=== PATIENT | female | born 1985 | race African-American/Black ===

== ENCOUNTER 2017-10-21 19:45 | Inpatient (IN) | payer OTHER ==
[2017-10-21] MEDS ORDERED: Ondansetron HCl/PF 4 MG/2 ML Vial IVP PRN (19:50)
[2017-10-21] MEDS ORDERED: Promethazine HCl 25 MG/ML VIAL IM PRN (19:50)
[2017-10-21 19:58] VITALS: BMI 34.9
[2017-10-21] MEDS ORDERED: Penicillin G Potassium 5 MILL.UNITS in Sodium Chloride 0.9% 100 ML IVPB SCH (20:15)
[2017-10-21 21:15] LABS: Hemoglobin 10.2 g/dL (12.0-16.0); Mean Corpuscular Hemoglobin 26.6 pg (27.0-31.0); Mean Corpuscular Volume 78.4 fL (78.0-98.0); Mean Platelet Volume 8.4 fL (7.4-10.4); Platelet Count 167 thou/uL (130-400); RBC Distribution Width 13.4 % (11.5-14.5); Red Blood Cell (RBC) Count 3.82 mill/uL (4.20-5.40); White Blood Cell (WBC) Count 4.4 thou/uL (4.8-10.8)
[2017-10-21] MEDS: Betamet Acet/Betamet Na Ph 30 MG/5 ML VIAL IM SCH (21:22)
[2017-10-21 21:31] LABS: Amphetamine Not Detected (NotDetected); Barbiturates Screen Not Detected (NotDetected); Benzodiazepine Screen Not Detected (NotDetected); Cocaine Metabolite Screen Not Detected (NotDetected); Medtox Control Line Valid? VALID (VALID); Medtox Reader # READER 1; Methadone Not Detected (NotDetected); Methamphetamine Not Detected (NotDetected); Opiate Screen Not Detected (NotDetected); Oxycodone Screen Not Detected (NotDetected); Phencyclidine (PCP) Not Detected (NotDetected); THC/Cannabinoid Screen Not Detected (NotDetected); Tricyclic Screen Not Detected (NotDetected)
--- NOTE | 2017-10-21 21:33 | PDOC.LDHP ---
Labor and Delivery H&P Chief complaint: other (medically indicated IOL for IUGR and oliogohydramnios) HPI: Patient has been seen at [facility] for limited care durin gthis . she was last seen on wednesday10/19/17, at which time she has an ultrasound where showed IUGR of <1%. she was referred to the [facility] and had her appointment today. At 1500 approximately I recieved at a call from Dr. Pugh - the [facility] with [facility]. He informed me that the patient had IUGR and oligohydramnios, and to admit her for steriod benefits for 48 hours and proceed with IOL. the patient was notified of the POC and instructed to arrive at [facility]. Current gestational age (weeks): 34 Dating criteria: second trimester ultrasound Grav: 8 Para: 5 OB History Details: 2004 P1 2006 P2 2007 P3 2009 P4 2016 P5 with pree - not induced. Current complications: IUGR, oligohydramnios Abnormal US findings: Yes (oligo and IUGR) Past Medical History: Anemia Current medications: pre- vitamins, iron Allergies/Adverse Reactions: Allergies Allergy/AdvReac Type Severity Reaction Status Date / Time No Known Drug Allergies Allergy Verified 10/21/17 20:04 Social history: tobacco use (3/day) - Physical Exam General: NAD Lungs: nonlabored breathing Abdomen: gravid FHT: category 1 - OB Labs Blood type: O RH: positive Antibody Screen: negative HIV: negative RPR: negative HEPSAg: negative GBS: unknown Urine drug screen: negative Rubella: non-immune Additional Labs: hg electrophoresis NML Neg Pap GCCt neg TORCH labs Neg with the exception of IGG for herpes and CMV Quad negative. Carrier testing for CF, SS, SMA fragileX neg. - Assessment L&D Assessment: medically indicated induction - Plan Plan: admit to L&D (I consulted with Dr. Roberson regarding patient and agreed on POC) -: A: at 34w 4 days with IUGR and oligohydramnios P: Admit to L&D for steroid for lung development Pree labs ordered as baseline due to history of Pree with last After extended monitoring upon arrival, can change to Q shift 20 minute heart rate monitoring induction of labor after steroid benefit NICU consult ordered ? mag for neuroprotection if patient labor.
[2017-10-21 21:37] LABS: ALT (SGPT) Less than 7 U/L (8-55); AST (SGOT) 7 U/L (5-34); Albumin 3.1 g/dL (3.5-5.0); Alkaline Phosphatase 99 U/L (40-150); Anion Gap 10 mmol/L (10-20); BUN (Urea Nitrogen) 6 mg/dL (7.0-18.7); Bilirubin, Total Less than 0.2 mg/dL (0.2-1.2); Calc. Creatinine Clearance 151 mL/min (70-130); Calcium 8.7 mg/dL (7.8-10.44); Carbon Dioxide 24 mmol/L (22-29); Chloride 108 mmol/L (98-107); Estimated GFR-MDRD Greater than 90; Globulin 2.7 g/dL (2.4-3.5); Glucose 104 mg/dL (70-105); Potassium 3.6 mmol/L (3.5-5.1); Protein, Total 5.8 g/dL (6.0-8.3); Sodium 138 mmol/L (136-145)
[2017-10-21 21:55] LABS: Syphilis Antibody Nonreactive (Nonreactive); Syphilis Antibody Index 0.04 S/CO (<1.00 Non-Reactive)
[2017-10-22 00:19] LABS: Creatinine, Urine 132.91 mg/dL (47-110); Protein, Urine Random Quant Less than 10 mg/dL (1-14)
[2017-10-22 02:00] LABS: HBSAg Index 0.21 S/CO (0-0.99); Hep B Surf Ag Non-Reactive S/CO (NonReactive)
[2017-10-22 09:54] LABS: Amnisure Internal Control QC ACCEPTABLE (ACCEPTABLE)
[2017-10-22 10:01] LABS: Amnisure Test No Membranes Rupture (No Rupture)
[2017-10-22] MEDS: Betamet Acet/Betamet Na Ph 30 MG/5 ML VIAL IM SCH ×2 (21:35→21:38)
[2017-10-22] MEDS ORDERED: Labetalol HCl 100 MG/20 ML VIAL SLOW IVP PRN (22:43)
[2017-10-22] MEDS ORDERED: Penicillin G Potassium 5 MILL.UNITS in Sodium Chloride 0.9% 100 ML IVPB SCH (23:00)
[2017-10-22 23:26] LABS: #Lymphocytes 1.1 thou/uL (1.20-3.40); #Monocytes 0.4 thou/uL (0.11-0.59); %Basophils 0.3 % (0.0-1.0); %Eosinophils 0.2 % (0.0-10.0); %Lymphocytes 17.1 % (21.0-51.0); %Monocytes 5.7 % (0.0-10.0); %Neutrophils 76.8 % (42.0-75.0); Hemoglobin 10.5 g/dL (12.0-16.0); Mean Corpuscular HGB CONC 32.7 g/dL (32.0-36.0); Mean Corpuscular Hemoglobin 26.3 pg (27.0-31.0); Mean Corpuscular Volume 80.2 fL (78.0-98.0); Mean Platelet Volume 8.8 fL (7.4-10.4); Platelet Count 166 thou/uL (130-400); RBC Distribution Width 13.6 % (11.5-14.5); White Blood Cell (WBC) Count 6.5 thou/uL (4.8-10.8)
[2017-10-22 23:50] LABS: ALT (SGPT) Less than 7 U/L (8-55); AST (SGOT) 6 U/L (5-34); Albumin 3.2 g/dL (3.5-5.0); Alkaline Phosphatase 96 U/L (40-150); Anion Gap 12 mmol/L (10-20); BUN (Urea Nitrogen) 6 mg/dL (7.0-18.7); Bilirubin, Total Less than 0.2 mg/dL (0.2-1.2); Calc. Creatinine Clearance 145 mL/min (70-130); Calcium 8.8 mg/dL (7.8-10.44); Carbon Dioxide 23 mmol/L (22-29); Chloride 107 mmol/L (98-107); Estimated GFR-MDRD Greater than 90; Globulin 3.1 g/dL (2.4-3.5); Glucose 144 mg/dL (70-105); Potassium 3.8 mmol/L (3.5-5.1); Protein, Total 6.3 g/dL (6.0-8.3); Sodium 138 mmol/L (136-145)
--- NOTE | 2017-10-23 17:39 | PDOC.APC ---
Antepartum Consult DANIELLE GARIBAY is a 32 year old female at [34 5/7] gestational weeks. I was asked by Yisel Hogan CNM to speak with the patient regarding anticipated course for a baby born at 34-35 weeks. Mother had limited care with [facility] with first appointment at 18 5/7 weeks. Her dating is based on that ultrasound. She was sent for another ultrasound on 10/19 for size>dates, found to have IUGR. She was seen by [facility] in [place] on 10/21, reported IUGR ( report shows normal SILVANA but patient was verbally told low fluid) and recommended steroid administration and induction of labor. Mother had no specific questions regarding premature delivery outside of how long the baby would be hospitalized. I spoke with the patient and father of the baby. I outlined that the timing and mode of delivery is a decision that will be made by Yisel Hogan or the OB provider. Once the patient is taken for delivery, the resuscitation team will be present and we discussed the composition of the neonatology team. The initial focus will be on respiratory stabilization and may include minimal assistance, CPAP or intubation with surfactant administration. I discussed that the patient will need to be admitted to the NICU in an isolette due to temperature instability associated with prematurity. We may then obtain IV access, likely peripheral, if the patient needs respiratory support or has low blood sugar as babies are at risk for hypoglycemia. We discussed that babies born are at higher risk for feeding intolerance, infection and jaundice. I discussed that breastmilk is the best nutrition for babies and she is strongly encouraged to pump after delivery. Mother does plan to breastfeed. I explained that the duration of hospital stay will be determined on the clinical course of the baby. I outlined the milestones that needed to be achieved to ensure safe discharge home. I also made them aware that their baby will need to reach a minimum of 4 pounds prior to discharge to be able to safely go home in a carseat. They had the opportunity to ask questions. Mother asked about why she had low fluid levels, why the baby had not grown and under what circumstances she would need a . I let her know there are many reasons for babies to be born small (poor placental flow, infection, genetic, etc) and the reason for her baby's growth restriction would depend on her clinical history. I let her know that I would let the L&D staff know her concerns and questions so that they could be addressed by her care provider. I encouraged them to contact our service again if additional questions arise. I spent 30 minutes in consultation and coordination of care. Labs: Ante Labs Blood Type O POSITIVE 10/21/17 20:55 Hep Bs Antigen Non-Reactive S/CO (NonReactive) 10/21/17 20:55 Syphilis ab negative HIV negative (5/) GBS unknown Rubella immune (5/18) TORCH titers negative per maternal H&P except CMV and HSV IgG
[2017-10-23] MEDS ORDERED: Penicillin G Potassium 5 MILL.UNITS in Sodium Chloride 0.9% 100 ML IVPB SCH (21:00)
[2017-10-23] MEDS: Lactated Ringer's 1,000 ML IV SCH (22:00)
--- NOTE | 2017-10-23 22:23 | PDOC.LDPN ---
Labor & Delivery Progress Note - Subjective Subjective: comfortable - Objective Abnormal vital signs: Occasional mild range blood pressures - resolving spontaneously Uterine fundus: non tender Dilation: 1 Effacement: 25% Station: -3 FHT: category 1 Vader contractions every: none Procedures: cook balloon placed for cervical ripening - Assessment (1) IUGR (intrauterine growth restriction) Current Visit: Yes Status: Acute (2) Oligohydramnios Code(s): O41.00X0 - OLIGOHYDRAMNIOS, UNSP TRIMESTER, NOT APPLICABLE OR UNSP Current Visit: Yes Status: Acute (3) Grand multipara in labor in third trimester Code(s): O09.43 - SUPRVSN OF W GRAND MULTIPARITY, THIRD TRIMESTER Current Visit: Yes Status: Acute Plan: other (cervical ripening for 12 hours using a cook's balloon) -: Antibiotic for GBS prophylaxis.
[2017-10-23] MEDS ORDERED: Lidocaine 1% (PF) 30 ML VIAL SC PRN (22:35)
[2017-10-23] MEDS ORDERED: Methylergonovine 0.2 MG/ML VIAL IM PRN (22:35)
[2017-10-23] MEDS ORDERED: HYDROcodone/Acetaminophen 5/325 mg Tablet PO PRN ×2 (22:35)
[2017-10-23] MEDS ORDERED: Misoprostol 200 MCG TAB PR PRN (22:35)
[2017-10-23] MEDS ORDERED: Ibuprofen 800 MG TAB PO PRN (22:35)
[2017-10-24] MEDS: Penicillin G 2.5 MILL.units 2.5 MILL.UNITS in Premix Bag 1 BAG IVPB SCH ×6 (02:00→22:00)
[2017-10-24] MEDS: Lactated Ringer's 1,000 ML IV SCH ×2 (07:07→15:55)
[2017-10-24] MEDS ORDERED: NS w/ Oxytocin 10 units 500 ML ONE (09:09)
[2017-10-24] MEDS ORDERED: NS w/ Oxytocin 10 units 500 ML IV SCH (09:30)
--- NOTE | 2017-10-24 13:28 | PDOC.LDPN ---
Labor & Delivery Progress Note - Subjective Subjective: comfortable, other (resting, not in pain) - Objective Vital signs reviewed and normal: yes Uterine fundus: non tender Dilation: 3 Effacement: 50% Station: -3 FHT: category 1 Alden contractions every: unable to visulize with external toco. AROM: clear fluid IUPC placed: yes - Assessment (1) IUGR (intrauterine growth restriction) Current Visit: Yes Status: Acute (2) Oligohydramnios Code(s): O41.00X0 - OLIGOHYDRAMNIOS, UNSP TRIMESTER, NOT APPLICABLE OR UNSP Current Visit: Yes Status: Acute (3) Grand multipara in labor in third trimester Code(s): O09.43 - SUPRVSN OF W GRAND MULTIPARITY, THIRD TRIMESTER Current Visit: Yes Status: Acute Plan: pitocin for augmentation -: Anticipate with Neonatology in room. continue pitocin for augmentation. epidural when desired by patient.
[2017-10-24] MEDS ORDERED: DISCONTINUE ALL PREVIOUS NARCOTICS FS SCH (14:15)
[2017-10-24] MEDS ORDERED: Bupivacaine 0.25% HCL 30 ML VIAL ONE (15:28)
[2017-10-24] MEDS: Bupivacaine 0.5% 20 ML, fentaNYL Citrate/PF 400 MCG in Sodium Chloride 0.9% 72 ML EPIDURAL SCH (15:31)
[2017-10-24] MEDS ORDERED: Naloxone HCl 0.4 mg/ml Vial IVP PRN ×2 (15:49)
[2017-10-24] MEDS ORDERED: Ondansetron HCl/PF 4 MG/2 ML Vial IVP PRN (15:49)
[2017-10-24] MEDS ORDERED: ePHEDrine/0.9% NaCl/PF SYRINGE 50 mg/10 ml SLOW IVP PRN (15:49)
[2017-10-24] MEDS ORDERED: diphenhydrAMINE 50 MG/ML VIAL IVP PRN (15:49)
[2017-10-24] MEDS ORDERED: Lactated Ringer's 500 ML IV PRN (15:49)
[2017-10-24] MEDS ORDERED: Acetaminophen 325 MG TAB PO PRN (15:49)
[2017-10-24] MEDS ORDERED: Eucerin (Mineral Oil/Petrolatum,White) 30 gm Jar TOP PRN (15:49)
[2017-10-24] MEDS ORDERED: Promethazine HCl 25 MG/ML VIAL IM PRN (15:49)
[2017-10-24] MEDS ORDERED: fentaNYL Citrate/PF 400 MCG, Bupivacaine 0.5% 20 ML in Sodium Chloride 0.9% 72 ML EPIDURAL SCH (16:00)
[2017-10-24] MEDS ORDERED: Communication Order-Pharmacy FS SCH (16:00)
[2017-10-25] MEDS: Bupivacaine 0.5% 20 ML, fentaNYL Citrate/PF 400 MCG in Sodium Chloride 0.9% 72 ML EPIDURAL SCH (00:15)
[2017-10-25] MEDS: Penicillin G 2.5 MILL.units 2.5 MILL.UNITS in Premix Bag 1 BAG IVPB SCH ×3 (02:30→14:15)
[2017-10-25] MEDS ORDERED: Misoprostol 200 MCG TAB ONE (02:44)
[2017-10-25] MEDS: NS / Oxytocin 40 units/1000ml 1,000 ML IV PRN ×2 (03:20→04:27)
--- NOTE | 2017-10-25 03:36 | PDOC.OPDEL ---
OB Operative/Delivery Note Delivery Dr/Surgeon: light Pre-Delivery Diagnosis: active labor, medically indicated induction, ruptured membrane Procedure/Post Delivery Dx: spontaneous vaginal delivery Weeks gestation: 35 Anesthesia: epidural - Findings A Sex: male Weight: 4 lb 4 oz - 1 min: 8 - 5 min: 9 - Additional Findings/Plan Placenta delivered: spontaneous Repaired Obstetrical Laceration: none Estimated blood loss: 100 EBL see nurses notes for QBL Compilations/Other Findings: Placenta to pathology Post delivery plan: routine recovery
[2017-10-25] MEDS ORDERED: Labetalol HCl 100 MG/20 ML VIAL SLOW IVP PRN ×2 (03:43→09:20)
[2017-10-25] MEDS ORDERED: NIFEdipine 10 MG CAP PO SCH (09:00)
[2017-10-25] MEDS ORDERED: Benzocaine/Menthol 20-0.5% 60 ML CAN TOP PRN (09:20)
[2017-10-25] MEDS ORDERED: Milk Of Magnesia 30 ML UDCUP PO PRN (09:20)
[2017-10-25] MEDS ORDERED: Bisacodyl 10 MG SUPP PR PRN (09:20)
[2017-10-25] MEDS ORDERED: HYDROcodone/Acetaminophen 5/325 mg Tablet PO PRN (09:20)
[2017-10-25] MEDS ORDERED: NS / Oxytocin 40 units/1000ml 1,000 ML IV SCH (09:20)
[2017-10-25] MEDS ORDERED: Misoprostol 200 MCG TAB VAG PRN (09:20)
[2017-10-25] MEDS ORDERED: Ondansetron HCl/PF 4 MG/2 ML Vial IVP PRN (09:20)
[2017-10-25] MEDS ORDERED: Methylergonovine 0.2 MG/ML VIAL IM PRN (09:20)
[2017-10-25] MEDS ORDERED: Adacel (T-DAP) 0.5 ML VIAL IM ONE (12:00)
[2017-10-25] MEDS: Docusate Calcium (SURFAK) 240 MG CAP PO SCH ×2 (14:14→21:04)
[2017-10-25] MEDS: Ferrous Sulfate 325 MG TAB PO SCH (17:07)
[2017-10-25] MEDS: HYDROcodone/Acetaminophen 5/325 mg Tablet PO PRN (21:40)
[2017-10-26 05:31] LABS: Hemoglobin 9.6 g/dL (12.0-16.0); Mean Corpuscular HGB CONC 32.1 g/dL (32.0-36.0); Mean Platelet Volume 9.1 fL (7.4-10.4); Platelet Count 171 thou/uL (130-400); RBC Distribution Width 13.6 % (11.5-14.5); Red Blood Cell (RBC) Count 3.68 mill/uL (4.20-5.40)
[2017-10-26] MEDS: Docusate Calcium (SURFAK) 240 MG CAP PO SCH ×2 (09:31→23:28)
[2017-10-26] MEDS: Ferrous Sulfate 325 MG TAB PO SCH ×2 (09:31→18:01)
[2017-10-26] MEDS ORDERED: Labetalol HCl 100 MG/20 ML VIAL SLOW IVP PRN (12:27)
[2017-10-26] MEDS ORDERED: NIFEdipine XL 30 MG TAB PO SCH (13:00)
[2017-10-26] MEDS: NIFEdipine XL 30 MG TAB PO SCH (14:18)
[2017-10-26] MEDS: HYDROcodone/Acetaminophen 5/325 mg Tablet PO PRN (23:28)
[2017-10-27] MEDS: Ferrous Sulfate 325 MG TAB PO SCH (08:11)
[2017-10-27] MEDS: Docusate Calcium (SURFAK) 240 MG CAP PO SCH (08:11)
[2017-10-27] MEDS: NIFEdipine XL 30 MG TAB PO SCH (10:05)
[2017-10-27 13:23] VITALS: TEMP 98.1
[2017-10-27 14:46] VITALS: BP 143/82
--- NOTE | 2017-10-27 14:48 | PDOC.PP ---
Post Progress Note Post Day #: 1 Subjective: pt is doing well. seeing in NICU. patinet has started pumping. Denies RODRIGUEZ, LOF, VB. PO intake tolerated: yes Flatus: yes Ambulation: yes Vital Signs (12 hours) Temp Pulse Resp BP 10/27/17 13:21 98.1 F 60 20 156/92 H 10/27/17 10:05 67 10/27/17 08:00 97.9 F 67 20 138/75 Weight Weight 197 lb Selected Entries 10/26/17 10/26/17 10/26/17 07:30 11:30 13:10 Blood Pressure Blood Pressure 157/97 H 181/91 H [Semi-Fowlers] Blood Pressure 162/79 H [Sitting] 10/26/17 13:17 Blood Pressure 162/79 H Blood Pressure [Semi-Fowlers] Blood Pressure [Sitting] - Physical Examination General: NAD Respiratory: non-labored breathing Psychiatric: A&Ox3, normal affect Result Diagrams: 10/26/17 04:58 10/22/17 23:17 Additional Labs: Post Labs Blood Type O POSITIVE 10/21/17 20:55 Hep Bs Antigen Non-Reactive S/CO (NonReactive) 10/21/17 20:55 (1) IUGR (intrauterine growth restriction) Status: Acute (2) Oligohydramnios Code(s): O41.00X0 - OLIGOHYDRAMNIOS, UNSP TRIMESTER, NOT APPLICABLE OR UNSP Status: Acute (3) Grand multipara in labor in third trimester Code(s): O09.43 - SUPRVSN OF W GRAND MULTIPARITY, THIRD TRIMESTER Status: Acute - Assessment/Plan A: now P6 s/p P; routine care. notify CNM if blood pressures are elevated
--- NOTE | 2017-10-27 14:55 | PDOC.PP ---
Post Progress Note Post Day #: 2 Subjective: patient is tired. denies RODRIGUEZ, RUQ pain, vision changes PO intake tolerated: yes Flatus: yes Ambulation: yes Vital Signs (12 hours) Temp Pulse Resp BP BP Pulse Ox 10/27/17 14:44 65 20 143/82 H 98 10/27/17 13:21 98.1 F 60 20 156/92 H 10/27/17 10:05 67 10/27/17 08:00 97.9 F 67 20 138/75 Weight Weight 197 lb - Physical Examination General: NAD Respiratory: non-labored breathing Abdominal: lochia (minimal) Extremities: negative homans (B) Skin: no rash Neurological: no gross focal deficits Psychiatric: A&Ox3 Result Diagrams: 10/26/17 04:58 10/22/17 23:17 Additional Labs: Post Labs Blood Type O POSITIVE 10/21/17 20:55 Hep Bs Antigen Non-Reactive S/CO (NonReactive) 10/21/17 20:55 (1) IUGR (intrauterine growth restriction) Status: Acute (2) Oligohydramnios Code(s): O41.00X0 - OLIGOHYDRAMNIOS, UNSP TRIMESTER, NOT APPLICABLE OR UNSP Status: Acute (3) Grand multipara in labor in third trimester Code(s): O09.43 - SUPRVSN OF W GRAND MULTIPARITY, THIRD TRIMESTER Status: Acute - Assessment/Plan A: [id number] sp with elevated blood pressures P: Start on scheduled Nifedipine 30mg PO QD Will discharge home this afternoon if blood pressure is adequately controlled on BP medications one week f/up in clinic for BP check
== END 2017-10-27 16:00 | disposition home or self-care (01) | DRG 775 ==
LOC: L&D 19:45 → 3SE 10-25 14:08 → 3SW 10-26 07:15
PROVIDERS: ADMIT Student in an Organized Health Care Education/Training Program; ATTEND Student in an Organized Health Care Education/Training Program
PROC: 0U7C7ZZ Dilation of Cervix, Via Natural or Artificial Opening (ICD-10-PCS; 2017-10-23)
PROC: 10907ZC Drainage of Amniotic Fluid, Therapeutic from Products of Conception, Via Natural or Artificial Opening (ICD-10-PCS; 2017-10-24)
PROC: 10H07YZ Insertion of Other Device into Products of Conception, Via Natural or Artificial Opening (ICD-10-PCS; 2017-10-24)
PROC: 10E0XZZ Delivery of Products of Conception, External Approach (ICD-10-PCS; principal; 2017-10-25)
DX: O36.5930 Maternal care for other known or suspected poor fetal growth, third trimester, not applicable or unspecified (principal); O41.03X0 Oligohydramnios, third trimester, not applicable or unspecified; O99.334 Smoking (tobacco) complicating childbirth; F17.210 Nicotine dependence, cigarettes, uncomplicated; Z3A.34 34 weeks gestation of pregnancy; Z37.0 Single live birth
CPT/HCPCS: 36415; 51702; 76815; 80053; 80306; 82570; 84112; 84156; 85025; 85027; 86780; 86850; 86900; 86901; 87081; 87340; 88307; A4353; C1726; J0702; J2540; J3010; J3490; J7050; S0020